=== PATIENT | female | born 2000 | race American Indian/Alaskan Native ===

== ENCOUNTER → 2025-04-20 | Outpatient (CLI) | payer OTHER, SELFPAY ==
--- NOTE | 2025-04-20 12:30 | XR_ITS ---
Examination: Pelvic ultrasound, transabdominal, complete Technique: Transabdominal ultrasound of the pelvis performed using grayscale imaging Date and time of exam: April 20, 2025 1244 hours INDICATIONS: Irregular heavy menses 2 years FINDINGS: Uterus 8.2 cm endometrial stripe 1.5 cm No uterine mass or intrauterine gestation Right ovary 2.9 cm arterial flow Left ovary 4.1 cm arterial flow, 18 x 22 x 21 mm cyst IMPRESSION: Left ovarian simple cyst 18 x 22 x 21 mm
== END | disposition home or self-care (01) ==
PROVIDERS: Referring Provider Nurse Practitioner Family; Visit Provider Nurse Practitioner Family
DX: N83.292 Other ovarian cyst, left side (principal)
CPT/HCPCS: 76856